=== PATIENT | male | born 1970 ===

== ENCOUNTER 2016-08-09 07:37 | Outpatient (CLI) | payer OTHER ==
[2016-08-09 08:22] LABS: eGFR (African) > 60; eGFR (Non-African) > 60
== END 2016-08-09 07:40 ==
LOC: LAB 07:37
PROVIDERS: ATTEND Physician Assistant
DX: R20.0 Anesthesia of skin (principal); Z13.6 Encounter for screening for cardiovascular disorders
CPT/HCPCS: 36415; 80053; 80061; 84443

== ENCOUNTER 2016-08-29 16:54 | Outpatient (CLI) | payer OTHER ==
[2016-08-29 17:18] LABS: BASOPHILS % 0.3 (0.0-1.5); EOSINOPHILS % 1.2 % (0.0-6.8); LYMPHOCYTES # 1.4 # k/uL (0.6-4.0); MEAN CORPUSCULAR HEMOGLOBIN 29.7 pg (28.0-34.0); MONOCYTES # 0.3 # k/uL (0.0-0.9); MONOCYTES % 4.3 % (0.0-11.0); NEUTROPHILS # 4.2 # k/uL (1.4-7.7)
--- NOTE | 2016-08-29 18:37 | Diagnostic Imaging Report ---
[facility] [id number] [facility].[address] [id number] Report Submission Date: Aug 29, 2016 6:36:01 PM CDT Patient Study Name: GOLDEN BRITO Date: Aug 29, 2016 5:19:28 PM CDT Modality Type: CR Gender: M Description: CHEST : 72 Institution: [facility] Physician: THAI MULLINS 2 views of the chest History: CHEST TIGHTNESS IN MEDIASTINAL AREA FOR 2 WEEKS Findings: No comparison studies Heart is normal in size Opacity is noted partially obscuring the left heart border Degenerative changes are noted thoracic spine. No pleural effusion Impression: 1. Lingular infiltrate. No pleural effusion Electronically signed on Aug 29, 2016 6:36:01 PM CDT by: Judi DE SANTIAGO
== END 2016-08-29 16:55 ==
LOC: RT 16:54
PROVIDERS: ATTEND Physician Assistant
DX: R07.89 Other chest pain (principal)
CPT/HCPCS: 36415; 71020; 85025